=== PATIENT | male | born 1970 | race Caucasian/White ===

== ENCOUNTER → 2020-09-20 | Outpatient (CLI) | payer MEDICARE ==
--- NOTE | 2020-09-20 16:15 | RAD ---
3 views lumbar spine without comparison for unspecified. FINDINGS: There is straightening of the normal lumbar lordosis. No fracture or acute osseous or alignment abnormality is seen. Prior hip arthroplasty is noted. Intervertebral disc spaces are recently maintained at all levels, with mild narrowing at L3-4. IMPRESSION: 1. No acute osseous or alignment abnormalities. Electronically signed by: Mina Riggs MD (09/20/2020 4:13 PM) [id number]
--- NOTE | 2020-09-20 16:16 | RAD ---
3 views of the bilateral sacroiliac joints without comparison for unspecified. FINDINGS: No significant sclerosis or narrowing of the bilateral sacroiliac joints is identified. Bilateral hip arthroplasties are present. IMPRESSION: 1. No significant radiographic abnormalities of the SI joints. Electronically signed by: Mina Riggs MD (09/20/2020 4:13 PM) [id number]
== END ==
LOC: DXRAD 13:05
PROVIDERS: ATTEND Internal Medicine Cardiovascular Disease
DX: M46.1 Sacroiliitis, not elsewhere classified (principal); M40.46 Postural lordosis, lumbar region; Z96.641 Presence of right artificial hip joint
CPT/HCPCS: 72100; 72202

== ENCOUNTER 2021-12-05 12:10 | Emergency (ER) | payer MEDICARE ==
[~2021-12-05] VITALS: Ht 172.7 cm; Wt 95.5 kg
[2021-12-05] MEDS ORDERED: NITROGLYCERIN SUBLINGUAL 0.4 MG BOTTLE OF 25. SL PRN (12:15)
[2021-12-05] MEDS ORDERED: ASPIRIN CHEWABLE 81 MG TABLET. PO ONE (12:15)
[2021-12-05] MEDS ORDERED: IV RINGERS SOLUTION,LACTATED 1,000 ML IV SCH (12:15)
--- NOTE | 2021-12-05 12:23 | EKG ---
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
--- NOTE | 2021-12-05 13:15 | PHYS DOC ---
Past History Past Medical History: Anxiety, Arthritis, High Cholesterol Additional Past Medical Histor: psoriasis (MARITA DE SANTIAGO) Past Surgical History: Hip Replacement (b/l) (MARITA DE SANTIAGO) Smoking: Quit Greater Than 1 Year (2014) (MARITA DE SANTIAGO) General Adult EDM: Chief Complaint: SHORTNESS OF BREATH HPI: HPI: Patient is a 51 year old male with history of anxiety, psoriasis, arthritis and high cholesterol who presents with shortness of breath, pleuritic chest pain and dyspnea on exertion. Patient reports he noticed his symptoms began approximately 6 months ago when him and his moved into their new apartment. He states that the past 2 weeks his symptoms have been much worse, to the point that his has voiced her concern. Patient states that walking out to his truck causes him to become extremely short of breath. His chest pain is "intense" and is primarily when he inhales. He states he is a former smoker, but he quit greater than 7 years ago. Patient reports daily medication for anxiety, but has had increased panic attacks along with his worsening symptoms. Part of his anxiety includes frequent emesis, but he denies any new symptoms, diarrhea, abdominal pain or bloody emesis. (MARIAT DE SANTIAGO) Review of Systems: Review of Systems: Constitutional: Denies fever, chills or generalized weakness Eyes: Denies change in visual acuity, visual field deficits or discharge HENT: Denies ear pain, nasal congestion or sore throat Respiratory: See HPI Cardiovascular: See HPI GI: See HPI : Denies dysuria or hematuria Musculoskeletal: Denies back pain or joint pain Integument: Denies new rash or other skin lesion Neurologic: Denies headache, focal weakness or sensory changes (MARITA DE SANTIAGO) Current Medications: Current Meds: Current Medications Medications (Trade) Dose Ordered Sig/Lashae Start Time Stop Time Status Last Admin Dose Admin Aspirin (Aspirin Chewable) 324 mg 1X ONCE 12/05/21 12:15 12/05/21 12:52 DC Lactated Ringer's 1,000 ml @ 1,000 mls/hr Q1H 12/05/21 12:15 12/05/21 13:14 UNV Nitroglycerin (Nitrostat) 0.4 mg PRN Q5MIN PRN 12/05/21 12:15 12/05/21 12:52 DC (MARITA DE SANTIAGO) Physical Exam: PE: Constitutional: Well developed, well nourished, no acute distress, non-toxic appearance. HENT: Normocephalic, atraumatic, bilateral external ears normal, nose normal. Eyes: EOMI, conjunctiva normal, no discharge. Neck: Normal range of motion, no stridor. Cardiovascular: Heart rate regular rhythm, no murmur. Lungs & Thorax: Bilateral breath sounds clear to auscultation. Skin: Diffuse rash consistent with history of psoriasis. Skin otherwise warm, dry, no erythema. Extremities: No tenderness, no cyanosis, no clubbing, ROM intact, no edema. Neurologic: Alert and oriented x4, steady and symmetrical gait, no focal deficits noted. (MARITA DE SANTIAGO) Current Patient Data: Labs: Laboratory Tests Test 12/05/21 12:59 12/05/21 13:06 Urine Collection Type Unknown Urine Color Yellow Urine Clarity Clear Urine pH 5.5 Urine Specific [place] >=1.030 Urine Protein Neg (NEG-TRACE) Urine Glucose (UA) Neg mg/dL (NEG) Urine Ketones (Stick) Neg mg/dL (NEG) Urine Blood Neg (NEG) Urine Nitrite Neg (NEG) Urine Bilirubin Neg (NEG) Urine Urobilinogen Dipstick 0.2 mg/dL (0.2 mg/dL) Urine Leukocyte Esterase Neg (NEG) Urine RBC 0 /HPF (0-2) Urine WBC Occ /HPF (0-4) Urine Squamous Epithelial Cells None /LPF Urine Bacteria Few /HPF (0-FEW) Urine Mucus Mod /LPF Urine Opiates Screen Neg (NEG) Urine Methadone Screen Neg (NEG) Urine Barbiturates Neg (NEG) Urine Phencyclidine Screen Neg (NEG) Urine Amphetamine/Methamphetamine Neg (NEG) Urine Benzodiazepines Screen Neg (NEG) Urine Cocaine Screen Neg (NEG) Urine Cannabinoids Screen Neg (NEG) Urine Ethyl Alcohol Neg (NEG) White Blood Count 7.0 x10^3/uL (4.0-11.0) Red Blood Count 4.93 x10^6/uL (4.30-5.70) Hemoglobin 15.9 g/dL (13.0-17.5) Hematocrit 46.1 % (39.0-53.0) Mean Corpuscular Volume 94 fL (79-100) Mean Corpuscular Hemoglobin 32 pg (25-35) Mean Corpuscular Hemoglobin Concent 35 g/dL (31-37) Red Cell Distribution Width 13.1 % (11.5-14.5) Platelet Count 214 x10^3/uL (140-400) Neutrophils (%) (Auto) 63 % (31-73) Lymphocytes (%) (Auto) 27 % (24-48) Monocytes (%) (Auto) 7 % (0-9) Eosinophils (%) (Auto) 2 % (0-3) Basophils (%) (Auto) 1 % (0-3) Neutrophils # (Auto) 4.4 x10^3uL (1.8-7.7) Lymphocytes # (Auto) 1.9 x10^3/uL (1.0-4.8) Monocytes # (Auto) 0.5 x10^3/uL (0.0-1.1) Eosinophils # (Auto) 0.1 x10^3/uL (0.0-0.7) Basophils # (Auto) 0.1 x10^3/uL (0.0-0.2) D-Dimer (Sandra) 0.19 mg/L (0.00-0.50) Sodium Level 138 mmol/L (136-145) Potassium Level 4.0 mmol/L (3.5-5.1) Chloride Level 102 mmol/L (98-107) Carbon Dioxide Level 26 mmol/L (21-32) Anion Gap 10 (6-14) Blood Urea Nitrogen 21 mg/dL (8-26) Creatinine 1.3 mg/dL (0.7-1.3) Estimated GFR (Cockcroft-Gault) 57.7 BUN/Creatinine Ratio 16 (6-20) Glucose Level 99 mg/dL (70-99) Calcium Level 8.8 mg/dL (8.5-10.1) Magnesium Level 2.2 mg/dL (1.8-2.4) Total Bilirubin 0.4 mg/dL (0.2-1.0) Aspartate Amino Transf (AST/SGOT) 27 U/L (15-37) Alanine Aminotransferase (ALT/SGPT) 60 U/L (16-63) Alkaline Phosphatase 121 U/L (46-116) Troponin I High Sensitivity 14 ng/L (4-75) Total Protein 7.3 g/dL (6.4-8.2) Albumin 3.7 g/dL (3.4-5.0) Albumin/Globulin Ratio 1.0 (1.0-1.7) Lipase 72 U/L (73-393) Vital Signs: VS - Last 72 Hours, by Label Date Time Temp Pulse Resp B/P (MAP) Pulse Ox O2 Delivery O2 Flow Rate FiO2 12/05/21 13:16 68 18 120/81 (94) 95 Room Air 12/05/21 12:48 63 20 131/97 (108) 96 Room Air 12/05/21 12:23 98.2 72 16 126/85 (99) 96 Room Air (MARITA DE SANTIAGO) EKG: EKG: EKG Interpreted by Dr. Deleon at 1225: Regular rate and rhythm 81 bpm with no ectopic beats. QT 354 ms/QTc 412 ms. No STEMI. (MARITA DE SANTIAGO) Radiology/Procedures: Radiology/Procedures: PROCEDURE: PORTABLE CHEST 1V EXAM: Chest, single view. HISTORY: Chest pain. COMPARISON: None. FINDINGS: A frontal view of the chest is obtained. There is no infiltrate, pleural effusion or pneumothorax. The heart is normal in size. IMPRESSION: No acute pulmonary finding. Electronically signed by: Sherine Osullivan MD (12/05/2021 1:37 PM) [id number] (MARITA DE SANTIAGO) Heart Score: C/O Chest Pain: Yes HEART Score for Chest Pain: HEART Score for Chest Pain Response (Comments) Value History Slighlty/Non-Suspicious 0 ECG Normal 0 Age >45 - < 65 1 Risk Factors 1 or 2 Risk Factors 1 Troponin < Normal Limit 0 Total 2 Risk Factors: Risk Factors: HLD, obesity. Risk Scores: Score 0 - 3: 2.5% MACE over next 6 weeks - Discharge Home Score 4 - 6: 20.3% MACE over next 6 weeks - Admit for Clinical Observation Score 7 - 10: 72.7% MACE over next 6 weeks - Early Invasive Strategies (MARITA DE SANTIAGO) Course & Med Decision Making: Course & Med Decision Making Pertinent Labs and Imaging studies reviewed. (See chart for details) Patient is a 51-year-old male with history of anxiety, psoriasis, arthritis and high cholesterol who presents with BALDERAS, SLB and pleuritic pain on inspiration. Work-up today will consist of lab work that includes troponin, EKG, chest x-ray, urinalysis and urine drug screen. Chest pain appears to be pleuritic in nature, so warrants cardiac work-up. Work-up is largely unremarkable. Patient wells score for PE is 0, low risk. Due to patient age, PERC rule does not rule out PE. D-dimer was added to the work-up today. D-dimer is negative. Discussed all findings with the patient and his at bedside. I advised that they follow-up with their primary care doctor and that I would provide information to contact a dental hygiene teacher for further evaluation of chronic shortness of breath/BALDERAS given patient's tobacco smoking history. All questions were answered. Patient was provided with return precautions. Patient and his understand and are agreeable to discharge plan. (MARITA DE SANTIAGO) Course & Med Decision Making I was the Attending physician on the above date of service of this patient. This patient was evaluated, examined, treated, and dispositioned from the emergency department by the mid-level practitioner. Although I was working at the time , no assistance was requested. Electronically signed, Sharon Deleon DO (SHARON DELEON DO) Juan Miguel Disclaimer: Juan Miguel Disclaimer: This electronic medical record was generated, in whole or in part, using a voice recognition dictation system. (MARITA DE SANTIAGO) Departure Departure: Impression: Primary Impression: Shortness of breath on exertion Disposition: 01 HOME / SELF CARE / HOMELESS Condition: STABLE Referrals: PCP,UNKNOWN (PCP) HELENE ALY MD Patient Instructions: Shortness of Breath, [id number] Additional Instructions: EMERGENCY DEPARTMENT GENERAL DISCHARGE INSTRUCTIONS Thank you for coming to [facility] (ED) today and trusting us with you care. We trust that you had a positive experience in our Emergency Department. If you wish to speak to the department management, you may call the director at [phone]. YOUR FOLLOW UP INSTRUCTIONS ARE FOLLOWS: 1. Follow up with your primary care doctor. If you do not have a primary doctor, please ask for a resource list of physicians or clinics that may be able to assist you with follow up care. 2. The emergency provider has interpreted your imaging studies, if any were ordered. The radiology rn imaging also reviewed them. If there is a change in the findings, you will be notified in 48 hours when at all possible. 3. If a lab test or culture has been done, your results will be reviewed and you will be notified if you need a change in treatment. 4. Follow instructions verbalized to you and refer to the printouts if needed. ADDITIONAL INSTRUCTIONS AND INFORMATION: 1. Your care today has been supervised by a physician who is specially trained in emergency care. Many problems require more than one evaluation for a complete diagnosis and treatment. We recommend that you schedule your follow up appointment as recommended to ensure complete treatment of you illness or injury. If you are unable to obtain follow up care and continue to have a problem, or if your condition worsens, we recommend that you return to the ED. 2. We are not able to safely determine your condition over the phone nor are we able to give sound medical advice over the phone. For these safety reasons, if you call for medical advice we will ask you to come to the ED for further evaluation. 3. If you have any questions regarding these discharge instructions please call the ED at [phone]. SAFETY INFORMATION: In the interest of safety, wellness, and injury prevention; we encourage you to wear your seat belt, if you smoke; quite smoking, and we encourage family to use a protective helmet for bicycling and other sporting events that present an increased risk for head injury. IF YOUR SYMPTOMS WORSEN OR NEW SYMPTOMS DEVELOP, OR YOU HAVE CONCERNS ABOUT YOUR CONDITION; OR IF YOUR CONDITION WORSENS WHILE YOU ARE WAITING FOR YOUR FOLLOW UP APPOINTMENT; EITHER CONTACT YOUR PRIMARY CARE DOCTOR, THE PHYSICIAN WHOSE NAME AND NUMBER YOU WERE GIVEN, OR RETURN TO THE ED IMMEDIATELY. Scripts Albuterol Sulfate (PROAIR HFA INHALER) 8.5 Gm Hfa.aer.ad 2 PUFF IH PRN Q4-6HRS PRN for SHORTNESS OF BREATH, #1 INHALER 0 Refills Prov: MARITA DE SANTIAGO 12/05/21 MARITA DE SANTIAGO Dec 05, 2021 13:15 SHARON DELEON DO Dec 06, 2021 08:10
[2021-12-05 13:25] LABS: BARBITURATES NEG (NEG); BENZODIAZEPINES NEG (NEG); CANNABINOIDS NEG (NEG); COCAINE NEG (NEG); METHADONE NEG (NEG); OPIATES NEG (NEG); PHENCYCLIDINE NEG (NEG)
[2021-12-05 13:26] LABS: AMPHETAMINE/METHAMPHETAMINE NEG (NEG)
[2021-12-05 13:28] LABS: BASO # 0.1 x10^3/uL (0.0-0.2); BASO % 1 % (0-3); EOS # 0.1 x10^3/uL (0.0-0.7); EOS % 2 % (0-3); HEMATOCRIT 46.1 % (39.0-53.0); HEMOGLOBIN 15.9 g/dL (13.0-17.5); LYMPH # 1.9 x10^3/uL (1.0-4.8); LYMPH % 27 % (24-48); MEAN CORPUSCULAR HEMOGLOBIN 32 pg (25-35); MEAN CORPUSCULAR HGB CONC 35 g/dL (31-37); MEAN CORPUSCULAR VOLUME 94 fL (79-100); MONO # 0.5 x10^3/uL (0.0-1.1); MONO % 7 % (0-9); NEUT # 4.4 x10^3uL (1.8-7.7); NEUT % 63 % (31-73); PLATELET COUNT 214 x10^3/uL (140-400); RED BLOOD COUNT 4.93 x10^6/uL (4.30-5.70); RED CELL DISTRIBUTION WIDTH 13.1 % (11.5-14.5)
[2021-12-05 13:30] LABS: BACTERIA,URINE FEW /HPF (0-FEW); BILIRUBIN,URINE NEG (NEG); CLARITY,URINE CLEAR; COLOR,URINE YELLOW; GLUCOSE,URINE NEG (NEG); NITRITE,URINE NEG (NEG); RBC,URINE 0 /HPF (0-2); UROBILINOGEN,URINE 0.2 mg/dL (0.2 mg/dL); WBC,URINE OCC /HPF (0-4)
--- NOTE | 2021-12-05 13:39 | RAD ---
EXAM: Chest, single view. HISTORY: Chest pain. COMPARISON: None. FINDINGS: A frontal view of the chest is obtained. There is no infiltrate, pleural effusion or pneumo thorax. The heart is normal in size. IMPRESSION: No acute pulmonary finding. Electronically signed by: Sherine Osullivan MD (12/05/2021 1:37 PM) [id number]
[2021-12-05 13:40] LABS: CALCIUM 8.8 mg/dL (8.5-10.1); CREATININE 1.3 mg/dL (0.7-1.3); GFR 57.7
[2021-12-05 13:46] LABS: ALBUMIN 3.7 g/dL (3.4-5.0); MAGNESIUM 2.2 mg/dL (1.8-2.4); TOTAL BILIRUBIN 0.4 mg/dL (0.2-1.0); TOTAL PROTEIN 7.3 g/dL (6.4-8.2)
[2021-12-05] MEDS ORDERED: ALBU2.5V8 IH (15:04)
[2021-12-05 15:15] VITALS: BP 122/90
== END 2021-12-05 15:26 | disposition home or self-care (01) ==
LOC: ER 12:10
DX: R06.02 Shortness of breath (principal); R07.81 Pleurodynia; F41.9 Anxiety disorder, unspecified; M19.90 Unspecified osteoarthritis, unspecified site; E78.00 Pure hypercholesterolemia, unspecified; Z87.891 Personal history of nicotine dependence
CPT/HCPCS: 36415; 71045; 80053; 80307; 81001; 83690; 83735; 84484; 85025; 85379; 93005; 96360; 99285; J7120

== ENCOUNTER → 2022-01-29 | Outpatient (CLI) | payer MEDICARE ==
[~2022-01-29] MED LIST: ALBU2.5V8 IH
== END ==
LOC: LAB 12:14
PROVIDERS: ATTEND Physician Assistant
DX: L40.9 Psoriasis, unspecified (principal); L40.50 Arthropathic psoriasis, unspecified
CPT/HCPCS: 86481